=== PATIENT | female | born 1995 | race American Indian/Alaskan Native ===

== ENCOUNTER 2018-10-14 16:20 | Emergency (ER) | payer OTHER ==
--- NOTE | 2018-10-14 17:44 | OBHP ---
Datetime: 10/14/2018 17:30 IP Adm Impression: , intrauterine IP Admit Plan: Observation/Evaluation Admit Comment, IP Provider: A/P: 22 y/o at 27.4 wks presented with c/o b/l lower abdominal p ain and cramping started after she lifted up a stretcher with a over 200lbs pt at work. No c/o VB or LOF. Feels like muscle pulling on the side. She is not sure how cramping feels like but think thats t he best way to explain the pain. She had ligament pain at around 18 wks and this is similar but worse . PMH: denies POBH: delivery by IOL due to oligo and SGA Exam: Abd: Soft. + tenderness in the bl lower abdominal area SSE: FFn collected VE: Cloesed/Thick and High TOCO: No ctx noted EFM: Cat 1 A/P: 22 y/o at 27.4 wks with cramping and lower abdominal pain. R/O PTL, R/O abruption US for Cervical length Blood work/FFN Fluid bolus LR 500cc/30 min Observation. Extremities - PN: Normal Abdomen - PN: Normal Back - PN: Normal General - PN: Normal FHR - Baseline A Provider: 140 Contraction Comments Provider: None Comments, ACOG Physical Exam: Abd; Soft, + tenderness in the bl lower abdominal area. Gestation - Est Wks by US: 27.4 EGA AdmitDate IP: 27.4 Vital Signs Provider: Reviewed; Within Normal Limits IP Chief Complaint: Other NICHD Variability Prov Fetus A: Moderate 6-25bpm NICHD Accel Fetus A IP Provider: Prolonged NICHD Decel Fetus A IP Provider: None Dilatation, Provider: 0 Effacement, Provider: 0 Station, Provider: -3 Genitourinary Exam: Normal
[2018-10-14 17:55] LABS: SQUAMOUS EPITHIAL 8 /hpf (0-5); URINE BACTERIA RARE (<OCC); URINE BILIRUBIN NEGATIVE (NEGATIVE); URINE BLOOD NEGATIVE (NEGATIVE); URINE CLARITY Hazy (Clear); URINE COLOR Yellow (YELLOW); URINE GLUCOSE (UA) NORMAL (Normal); URINE LEUKOCYTE ESTERASE NEG Leu/uL (Negative); URINE PROTEIN NEGATIVE (NEGATIVE); URINE UROBILINOGEN NORMAL mg/dL (0.2-1.0)
[2018-10-14 18:08] LABS: BASO # 0.1 K/uL (0.0-0.2); BASO % 0.6 % (0.0-2.0); EOS # 0.1 K/uL (0.0-0.7); HEMOGLOBIN 10.4 g/dL (11.0-16.0); LYMPH # 2.5 K/uL (1.0-4.3); LYMPH % 20.7 % (20.0-40.0); MEAN CELL VOLUME 90.2 fL (81.0-99.0); MEAN CORPUSCULAR HEMOGLOBIN 29.3 pg (27.0-31.0); MEAN CORPUSCULAR HGB CONC 32.5 g/dL (33.0-37.0); MEAN PLATELET VOLUME 8.5 fL (7.2-11.7); MONO # 0.6 K/uL (0.0-0.8); MONO % 4.7 % (0.0-10.0); NEUT # 8.6 K/uL (1.8-7.0); RBC 3.56 Mil/uL (3.80-5.20); RED CELL DISTRIBUTION WIDTH 13.7 % (11.5-14.5); WHITE BLOOD COUNT 11.9 K/uL (4.8-10.8)
[2018-10-14 18:17] LABS: INR 1.1; PROTHROMBIN TIME 11.5 SECONDS (9.7-12.2)
--- NOTE | 2018-10-16 10:38 | US ---
Indication: R/O Placenatl abruption and labor Comparison: None available Technique: Real-time ultrasound was performed through the pelvis. Findings: There is a single living fetus in cephalic presentation. Amniotic fluid volume is within normal limits. Anterior placenta. The placenta is not previa. There are no adnexal masses or cysts evident. Cervix length measures approximately 3.9 cm. The study was performed for emergent evaluation, and the whole anatomic survey of the fetus was not performed. This should be performed on an outpatient elective basis as clinically warranted. Measurements and calculations: Fetus has a composite sonographic age of 27 weeks 4 days. This calculation is based on the biparietal diameter, head circumference, abdominal circumference, and femur length. Estimated heart rate 138.9 beats per min. Estimated weight 1114 g. Impression: Single living fetus with a composite sonographic age of 27 weeks 4 days. Estimated heart rate 138.9 beats per min. Preliminary impression was provided by [employer].
[2018-10-16 11:38] VITALS: BP 96/67; PULSE 79; RESP 20; TEMP 98.5
== END 2018-10-14 20:10 | disposition home or self-care (01) ==
LOC: C.EROB 16:20
DX: O26.892 Other specified pregnancy related conditions, second trimester (principal); R10.32 Left lower quadrant pain; R10.31 Right lower quadrant pain; Z3A.27 27 weeks gestation of pregnancy